=== PATIENT | female | born 1975 | race Caucasian/White ===

== ENCOUNTER → 2016-12-23 | Outpatient (CLI) | payer OTHER ==
[~2016-12-23] MED LIST: '''ZYRTEC PO; ALPRAZOLAM0.25 M2 PO; BACTRIM DS 8001 TA1 PO; BENADRYL ALLERG25 M5 PO; CELEXA10 MG PO; CLARITIN10 MG PO; FLAGYL250 MG PO; FLAGYL500 MG PO; HYDROCODON-ACE118 ML PO; HYDROXYZINE PAM25 M1 PO; LEVAQUIN500 M2 PO; LEVAQUIN750 M1 PO; LIDEX 0.05% CRE15 GM T; MIDRIN (DURADR1 CAP PO; MUCINEX ER600 MG PO; Motrin,Rufen800 MG PO; NORCO 325 MG-101 TAB PO; PAROXETINE HCL20 MG PO; PHENERGAN25 M3 PO; PHENERGAN25 MG R; PREDNICOT20 MG PO; PREDNISONE10 MG PO; PRENATAL1 TA1 PO; PRILOSEC10 MG PO; PYRIDIUM200 M1 PO; VISTARIL25 M2 PO; VISTARIL25 MG PO; WELLBUTRIN XL150 MG PO; ZOFRAN4 MG PO; ZOLPIDEM TARTRAT5 MG PO; [UNRECOGNIZED DRUG - OTHER]
== END | disposition home or self-care (01) ==
LOC: US 04:14
DX: M79.661 Pain in right lower leg (principal); M79.662 Pain in left lower leg

== ENCOUNTER 2017-05-03 19:27 | Emergency (ER) | payer OTHER ==
[~2017-05-03] VITALS: Ht 162.5 cm; Wt 69.9 kg
[2017-05-03 19:35] VITALS: BP 129/80
[2017-05-03] MEDS ORDERED: PERCOCET 5-3251 EACH PO (19:35)
[2017-05-03] MEDS ORDERED: Motrin,Rufen800 MG PO (19:35)
[2017-05-03 20:10] LABS: BILIRUBIN NEGATIVE (NEGATIVE); BLOOD NEGATIVE (NEGATIVE); CLARITY SL CLOUDY (CLEAR); COLOR YELLOW (YELLOW); GLUCOSE NEGATIVE (NEGATIVE); KETONE NEGATIVE (NEGATIVE); LEUKO ESTERASE NEGATIVE (NEGATIVE); NITRITE NEGATIVE (NEGATIVE); SPECIFIC GRAVITY 1.015 (1.005-1.030); UROBILINOGEN 0.2 E.U./dl (0.2-1.0)
[2017-05-03 20:18] LABS: BACTERIA 1+; EPITHELIAL CELLS 16-20
[2017-05-03 20:42] LABS: BASO % 0.1 % (0.0-1.0); EOS # 0.2 10*3/uL (0.0-0.4); EOS % 2.7 % (1.0-4.0); HEMATOCRIT 39.5 % (37.0-47.0); LYMPH % 26.3 % (27.0-41.0); MEAN CORPUSCULAR HGB 29.6 pg (27.0-31.0); MEAN CORPUSCULAR HGB CONC 32.9 g/dl (33.0-37.0); MEAN PLATELET VOLUME 10.7 fl (9.6-12.3); MONO # 0.6 10*3/uL (0.1-1.0); MONO % 7.7 % (3.0-9.0); NEUT # 4.7 10*3/uL (2.3-7.9); NEUT % 62.8 % (47.0-73.0); PLATELET COUNT AUTOMATED 359 10*3/uL (130-400); RED BLOOD COUNT 4.39 10*6/uL (4.10-5.10); RED CELL DISTRI WIDTH 13.2 % (0-14.5); WHITE BLOOD COUNT 7.5 10*3/uL (4.8-10.8)
[2017-05-03 20:59] LABS: ALBUMIN 3.5 gm/dl (3.1-4.5); ALKALINE PHOSPHATASE 85 U/L (45-117); BUN 15 mg/dl (7-24); CHLORIDE 106 mmol/L (98-107); CREATININE 1.09 mg/dL (0.55-1.02); POTASSIUM 4.7 mmol/L (3.5-5.1); SGOT/AST 21 IU/L (3-35); SGPT/ALT 21 U/L (12-78); SODIUM 141 mmol/L (136-145); TOTAL PROTEIN 7.1 gm/dL (6.4-8.2)
[2017-05-03] MEDS ORDERED: AMINOPHYLLIN200 MG PO (21:15)
== END 2017-05-03 20:11 | disposition home or self-care (01) ==
LOC: ED 19:27
PROVIDERS: Physician Assistant
DX: N39.0 Urinary tract infection, site not specified (principal); Z98.890 Other specified postprocedural states; Z90.89 Acquired absence of other organs; Z79.899 Other long term (current) drug therapy

== ENCOUNTER → 2018-03-23 | Outpatient (CLI) | payer OTHER ==
[~2018-03-23] MED LIST changes: +AMINOPHYLLIN200 MG PO; +PERCOCET 5-3251 EACH PO
== END | disposition home or self-care (01) ==
LOC: MAMMO 03-16 08:20
DX: R92.8 Other abnormal and inconclusive findings on diagnostic imaging of breast (principal); Z98.82 Breast implant status

== ENCOUNTER 2018-06-19 | Emergency (ER) | payer OTHER ==
[2018-06-19 23:15] LABS: ALBUMIN 3.6 gm/dl (3.1-4.5); ALKALINE PHOSPHATASE 84 U/L (45-117); BUN 16 mg/dl (7-24); CHLORIDE 105 mmol/L (98-107); CREATININE 0.85 mg/dL (0.55-1.02); LIPASE 91 U/L (73-393); POTASSIUM 3.9 mmol/L (3.5-5.1); SGOT/AST 14 IU/L (3-35); SGPT/ALT 19 U/L (12-78); SODIUM 137 mmol/L (136-145); TOTAL PROTEIN 7.3 gm/dL (6.4-8.2)
[2018-06-19 23:16] LABS: HEMATOCRIT 43.5 % (37.0-47.0); HEMOGLOBIN 14.3 g/dl (12.0-16.0); MEAN CELL VOLUME 90.6 fl (81.0-99.0); MEAN CORPUSCULAR HGB 29.8 pg (27.0-31.0); MEAN CORPUSCULAR HGB CONC 32.9 g/dl (33.0-37.0); MEAN PLATELET VOLUME 11.3 fl (9.6-12.3); PLATELET COUNT AUTOMATED 280 10*3/uL (130-400)
[2018-06-19 23:38] LABS: TOTAL CELLS COUNTED 100 #CELLS
[2018-06-19 23:39] LABS: PLATELET SUFFICIENCY NORMAL (NORMAL)
[2018-06-20 01:25] LABS: BILIRUBIN NEGATIVE (NEGATIVE); BLOOD NEGATIVE (NEGATIVE); CLARITY CLEAR (CLEAR); COLOR YELLOW (YELLOW); GLUCOSE NEGATIVE (NEGATIVE); KETONE 3+ (NEGATIVE); LEUKO ESTERASE NEGATIVE (NEGATIVE); NITRITE NEGATIVE (NEGATIVE); SPECIFIC GRAVITY >= 1.030 (1.005-1.030); UROBILINOGEN 0.2 E.U./dl (0.2-1.0)
[2018-06-20 01:47] LABS: BACTERIA TRACE; EPITHELIAL CELLS 15-20
[2018-06-20] MEDS ORDERED: ZOFRAN4 MG PO ×2 (01:53→02:11)
== END 2018-06-20 02:42 | disposition home or self-care (01) ==
PROVIDERS: Nurse Practitioner Family
DX: K52.9 Noninfective gastroenteritis and colitis, unspecified (principal); G43.909 Migraine, unspecified, not intractable, without status migrainosus; Z79.899 Other long term (current) drug therapy

== ENCOUNTER → 2019-04-25 | Outpatient (CLI) | payer OTHER ==
--- NOTE | ~2019-04-25 | EKG ---
[place], [place] ELECTROCARDIOGRAM REPORT NAME: ELISA DONATO UNIT #: [id number] ROOM: DOCTOR: EPIPHANY DRAFT REPORT BIRTHDATE: [birth year] [facility] Test Date: 2019-04-25 Test Time: 17:05:57 Pat Name: ELISA DONATO Department: Room: Gender: F Senior Process Analyst: : 1975 Requested By: KIMBERLY MARBY Order Number: [id number] Reading MD: Chandni Montes Measurements Intervals [place] Rate: 82 P: 77 IA: 151 QRS: 78 QRSD: 66 T: 75 QT: 360 QTc: 421 Interpretive Statements Sinus rhythm No previous ECG available for comparison Electronically Signed On 04-26-2019 9:40:22 PST by Chandni Montes CM:EKGRPT:ELECTROCARDIOGRAM REPORT 1705 [id number] KIMBERLY MABRY EPIPHANY DRAFT REPORT KIMBERLY MABRY
== END | disposition home or self-care (01) ==
LOC: CARD 16:31
DX: F41.9 Anxiety disorder, unspecified (principal); R25.1 Tremor, unspecified; L65.9 Nonscarring hair loss, unspecified; F32.9 Major depressive disorder, single episode, unspecified; R42 Dizziness and giddiness

== ENCOUNTER → 2019-05-29 | Outpatient (CLI) | payer OTHER | END | disposition home or self-care (01) | LOC: MRI 10:39 | DX: G43.909 Migraine, unspecified, not intractable, without status migrainosus (principal); H57.12 Ocular pain, left eye ==

== ENCOUNTER 2019-08-20 14:20 | Emergency (ER) | payer OTHER ==
[~2019-08-20] VITALS: Ht 162.5 cm; Wt 68.0 kg
[2019-08-20 14:27] VITALS: BP 128/77
[2019-08-20] MEDS ORDERED: ZOFRAN4 MG PO (16:23)
== END 2019-08-20 16:26 | disposition home or self-care (01) ==
LOC: ED 14:20
DX: J11.1 Influenza due to unidentified influenza virus with other respiratory manifestations (principal); F41.9 Anxiety disorder, unspecified; F32.9 Major depressive disorder, single episode, unspecified; Z79.2 Long term (current) use of antibiotics; Z79.899 Other long term (current) drug therapy

== ENCOUNTER 2019-10-23 07:16 | Emergency (ER) | payer OTHER ==
[~2019-10-23] VITALS: Ht 162.5 cm; Wt 70.8 kg
[2019-10-23 07:23] VITALS: BP 107/60
[2019-10-23] MEDS ORDERED: LIDEX 0.05% CRE15 GM T (07:38)
[2019-10-23] MEDS ORDERED: ATARAX,VISTARIL50 MG PO (07:38)
[2019-10-23] MEDS ORDERED: PREDNISONE20 M1 PO (07:38)
== END 2019-10-23 07:40 | disposition home or self-care (01) ==
LOC: ED 07:16
DX: L25.9 Unspecified contact dermatitis, unspecified cause (principal); Z79.899 Other long term (current) drug therapy; Z98.890 Other specified postprocedural states; Z90.89 Acquired absence of other organs

== ENCOUNTER 2019-11-04 23:11 | Emergency (ER) | payer OTHER ==
[~2019-11-04] VITALS: Ht 165.1 cm; Wt 69.9 kg
[~2019-11-04 23:11] MED LIST changes: +ATARAX,VISTARIL50 MG PO; +PREDNISONE20 M1 PO
[2019-11-04 23:40] LABS: BASO % 0.1 % (0.0-1.0); EOS % 0.1 % (1.0-4.0); HEMATOCRIT 39.2 % (37.0-47.0); LYMPH # 3.2 10*3/uL (1.3-4.4); LYMPH % 13.6 % (27.0-41.0); MEAN CELL VOLUME 89.7 fl (81.0-99.0); MEAN CORPUSCULAR HGB 29.5 pg (27.0-31.0); MEAN CORPUSCULAR HGB CONC 32.9 g/dl (33.0-37.0); MEAN PLATELET VOLUME 10.6 fl (9.6-12.3); MONO # 1.2 10*3/uL (0.1-1.0); MONO % 5.1 % (3.0-9.0); NEUT # 18.6 10*3/uL (2.3-7.9); NEUT % 80.3 % (47.0-73.0); PLATELET COUNT AUTOMATED 334 10*3/uL (130-400); RED BLOOD COUNT 4.37 10*6/uL (4.10-5.10); RED CELL DISTRI WIDTH 14.2 % (0-14.5); WHITE BLOOD COUNT 23.2 10*3/uL (4.8-10.8)
[2019-11-04 23:51] LABS: ACT PARTIAL THROMBO TIME 20.2 SECONDS (20.0-32.1); INTERNATIONAL NORM RATIO 0.9 (2.0-3.5)
[2019-11-04 23:58] LABS: ALBUMIN 3.4 gm/dl (3.1-4.5); ALKALINE PHOSPHATASE 65 U/L (45-117); BUN 14 mg/dl (7-24); CHLORIDE 105 mmol/L (98-107); CREATININE 1.04 mg/dL (0.55-1.02); POTASSIUM 3.9 mmol/L (3.5-5.1); SGOT/AST 13 IU/L (3-35); SGPT/ALT 15 U/L (12-78); SODIUM 139 mmol/L (136-145); TOTAL PROTEIN 6.7 gm/dL (6.4-8.2)
[2019-11-05 00:05] LABS: TROPONIN I < 0.015 ng/ml (<0.045)
[2019-11-05 02:03] LABS: BILIRUBIN NEGATIVE (NEGATIVE); BLOOD NEGATIVE (NEGATIVE); CLARITY CLEAR (CLEAR); COLOR YELLOW (YELLOW); GLUCOSE NEGATIVE (NEGATIVE); KETONE NEGATIVE (NEGATIVE); LEUKO ESTERASE NEGATIVE (NEGATIVE); NITRITE NEGATIVE (NEGATIVE); PH 6.5 (5.0-9.0); SPECIFIC GRAVITY 1.015 (1.005-1.030); UROBILINOGEN 0.2 E.U./dl (0.2-1.0)
[2019-11-05 02:09] LABS: RBC 0-2 rbc/hpf (0-2); WBC 0-2 wbc/hpf (0-5)
[2019-11-05 03:41] VITALS: BP 112/78
[2019-11-05] MEDS ORDERED: PROTONIX40 MG PO (04:18)
== END 2019-11-05 04:39 | disposition home or self-care (01) ==
LOC: ED 23:11
PROVIDERS: Emergency Medicine Emergency Medical Services
DX: R07.89 Other chest pain (principal); K21.9 Gastro-esophageal reflux disease without esophagitis; F41.9 Anxiety disorder, unspecified; E78.5 Hyperlipidemia, unspecified; Z79.899 Other long term (current) drug therapy

== ENCOUNTER → 2019-11-16 | Outpatient (CLI) | payer OTHER ==
[~2019-11-16] MED LIST changes: +PROTONIX40 MG PO
== END | disposition home or self-care (01) ==
LOC: US 13:56
DX: R10.9 Unspecified abdominal pain (principal)

== ENCOUNTER → 2020-01-19 | Outpatient (CLI) | payer OTHER | END | disposition home or self-care (01) | LOC: US 12-15 13:00 | DX: R22.1 Localized swelling, mass and lump, neck (principal) ==

== ENCOUNTER 2020-03-26 23:16 | Emergency (ER) | payer OTHER ==
[~2020-03-26] VITALS: Ht 165.1 cm; Wt 72.6 kg
[2020-03-27] MEDS ORDERED: TESSALON PERLE100 M1 PO (00:10)
== END 2020-03-27 00:54 | disposition home or self-care (01) ==
LOC: ED 23:16
DX: J06.9 Acute upper respiratory infection, unspecified (principal); Z79.899 Other long term (current) drug therapy

== ENCOUNTER → 2020-07-24 | Outpatient (CLI) | payer OTHER ==
[~2020-07-24] MED LIST changes: +TESSALON PERLE100 M1 PO
== END | disposition home or self-care (01) ==
LOC: MAMMO 10:56
PROVIDERS: ATTEND Internal Medicine
DX: M50.31 Other cervical disc degeneration, high cervical region (principal); M48.02 Spinal stenosis, cervical region; M85.88 Other specified disorders of bone density and structure, other site; R92.1 Mammographic calcification found on diagnostic imaging of breast; R92.8 Other abnormal and inconclusive findings on diagnostic imaging of breast

== ENCOUNTER 2020-10-12 23:52 | Emergency (ER) | payer OTHER ==
[~2020-10-12] VITALS: Ht 162.5 cm; Wt 75.3 kg
[2020-10-13 00:07] VITALS: BP 140/96
[2020-10-13 01:17] LABS: BASO % 0.3 % (0.0-1.0); EOS # 0.1 10*3/uL (0.0-0.4); EOS % 0.5 % (1.0-4.0); HEMATOCRIT 38.2 % (37.0-47.0); LYMPH # 1.8 10*3/uL (1.3-4.4); LYMPH % 15.6 % (27.0-41.0); MEAN CELL VOLUME 88.2 fl (81.0-99.0); MEAN CORPUSCULAR HGB 28.4 pg (27.0-31.0); MEAN CORPUSCULAR HGB CONC 32.2 g/dl (33.0-37.0); MEAN PLATELET VOLUME 11.4 fl (9.6-12.3); MONO # 0.9 10*3/uL (0.1-1.0); MONO % 7.5 % (3.0-9.0); NEUT # 8.8 10*3/uL (2.3-7.9); NEUT % 75.8 % (47.0-73.0); PLATELET COUNT AUTOMATED 327 10*3/uL (130-400); RED BLOOD COUNT 4.33 10*6/uL (4.10-5.10); RED CELL DISTRI WIDTH 13.5 % (0-14.5); WHITE BLOOD COUNT 11.6 10*3/uL (4.8-10.8)
[2020-10-13 01:40] LABS: ALBUMIN 3.3 gm/dl (3.1-4.5); ALKALINE PHOSPHATASE 116 U/L (45-117); BUN 16 mg/dl (7-24); CHLORIDE 108 mmol/L (98-107); CREATININE 0.97 mg/dL (0.55-1.02); POTASSIUM 3.3 mmol/L (3.5-5.1); SGOT/AST 12 IU/L (3-35); SGPT/ALT 14 U/L (12-78); SODIUM 141 mmol/L (136-145); TOTAL PROTEIN 6.8 gm/dL (6.4-8.2)
== END 2020-10-13 02:11 | disposition home or self-care (01) ==
LOC: ED 23:52
PROVIDERS: Emergency Medicine
DX: R07.89 Other chest pain (principal); K21.9 Gastro-esophageal reflux disease without esophagitis; F41.9 Anxiety disorder, unspecified; E78.5 Hyperlipidemia, unspecified; Z79.899 Other long term (current) drug therapy; Z98.890 Other specified postprocedural states

== ENCOUNTER 2021-01-04 21:30 | Emergency (ER) | payer OTHER ==
[~2021-01-04] VITALS: Ht 162.5 cm; Wt 77.1 kg
[2021-01-04 21:44] VITALS: BP 110/73
[2021-01-04 22:40] LABS: BILIRUBIN Negative (Negative); BLOOD Negative (Negative); CLARITY Cloudy (Clear); COLOR Yellow (Yellow); GLUCOSE Negative (Negative); KETONE Trace (Negative); LEUKO ESTERASE Negative (Negative); NITRITE Negative (Negative); PH 5.5 (4.5-8.0); SPECIFIC GRAVITY >= 1.030 (1.001-1.030)
[2021-01-04 23:09] LABS: BACTERIA TRACE; RBC 0-2 rbc/hpf (0-2); WBC 0-2 wbc/hpf (0-5)
[2021-01-04] MEDS ORDERED: IBU800 MG PO (23:12)
== END 2021-01-04 23:29 | disposition home or self-care (01) ==
LOC: ED 21:30
PROVIDERS: Nurse Practitioner Family
DX: M65.841 Other synovitis and tenosynovitis, right hand (principal); M65.842 Other synovitis and tenosynovitis, left hand; M94.0 Chondrocostal junction syndrome [Tietze]; R30.9 Painful micturition, unspecified; M54.5 Low back pain; Z87.442 Personal history of urinary calculi; Z79.899 Other long term (current) drug therapy; Z98.890 Other specified postprocedural states; Z90.89 Acquired absence of other organs

== ENCOUNTER 2021-01-22 17:56 | Emergency (ER) | payer OTHER ==
[~2021-01-22] VITALS: Ht 162.5 cm; Wt 77.1 kg
[~2021-01-22 17:56] MED LIST changes: +IBU800 MG PO
[2021-01-22 18:11] VITALS: BP 129/81
[2021-01-22 19:48] LABS: BILIRUBIN Negative (Negative); BLOOD Negative (Negative); CLARITY Cloudy (Clear); COLOR Yellow (Yellow); GLUCOSE Negative (Negative); KETONE Trace (Negative); LEUKO ESTERASE Negative (Negative); NITRITE Negative (Negative); PH 6.5 (4.5-8.0); SPECIFIC GRAVITY 1.025 (1.001-1.030)
[2021-01-22 19:54] LABS: BASO % 0.3 % (0.0-1.0); EOS # 0.1 10*3/uL (0.0-0.4); EOS % 1.3 % (1.0-4.0); HEMATOCRIT 41.2 % (37.0-47.0); LYMPH # 2.2 10*3/uL (1.3-4.4); LYMPH % 23.6 % (27.0-41.0); MEAN CELL VOLUME 89.2 fl (81.0-99.0); MEAN CORPUSCULAR HGB 28.1 pg (27.0-31.0); MEAN CORPUSCULAR HGB CONC 31.6 g/dl (33.0-37.0); MEAN PLATELET VOLUME 11.1 fl (9.6-12.3); MONO # 0.7 10*3/uL (0.1-1.0); MONO % 7.6 % (3.0-9.0); NEUT # 6.1 10*3/uL (2.3-7.9); PLATELET COUNT AUTOMATED 336 10*3/uL (130-400); RED BLOOD COUNT 4.62 10*6/uL (4.10-5.10); RED CELL DISTRI WIDTH 13.9 % (0-14.5); WHITE BLOOD COUNT 9.2 10*3/uL (4.8-10.8)
[2021-01-22 19:58] LABS: RBC 0-2 rbc/hpf (0-2); WBC 0-2 wbc/hpf (0-5)
[2021-01-22 19:59] LABS: BACTERIA 1+
[2021-01-22 20:11] LABS: ALBUMIN 3.6 gm/dl (3.1-4.5); ALKALINE PHOSPHATASE 102 U/L (45-117); BUN 11 mg/dl (7-24); CHLORIDE 105 mmol/L (98-107); CREATININE 0.83 mg/dL (0.55-1.02); LIPASE 107 U/L (73-393); POTASSIUM 4.2 mmol/L (3.5-5.1); SGOT/AST 13 IU/L (3-35); SGPT/ALT 15 U/L (12-78); SODIUM 139 mmol/L (136-145); TOTAL PROTEIN 7.3 gm/dL (6.4-8.2)
[2021-01-22] MEDS ORDERED: DICYCLOMINE HCL20 MG PO (23:12)
== END 2021-01-22 23:48 | disposition home or self-care (01) ==
LOC: ED 17:56
PROVIDERS: Emergency Medicine
DX: R10.30 Lower abdominal pain, unspecified (principal); Z98.890 Other specified postprocedural states; Z90.89 Acquired absence of other organs; Z79.899 Other long term (current) drug therapy

== ENCOUNTER 2021-06-14 17:03 | Emergency (ER) | payer OTHER ==
[~2021-06-14] VITALS: Ht 167.6 cm; Wt 72.6 kg
[~2021-06-14 17:03] MED LIST changes: +DICYCLOMINE HCL20 MG PO
[2021-06-14 17:21] VITALS: BP 122/63
[2021-06-14] MEDS ORDERED: ZOFRAN4 MG PO (20:02)
== END 2021-06-14 20:23 | disposition home or self-care (01) ==
LOC: ED 17:03
DX: U07.1 COVID-19 (principal); Z20.822 Contact with and (suspected) exposure to COVID-19

== ENCOUNTER 2021-07-13 17:38 | Emergency (ER) | payer OTHER ==
[~2021-07-13] VITALS: Ht 162.5 cm; Wt 74.4 kg
[2021-07-13 17:51] VITALS: BP 139/79
[2021-07-13] MEDS ORDERED: TYLENOL325 M1 PO (18:57)
[2021-07-13] MEDS ORDERED: MUCINEX DM 30/61 TAB PO (18:57)
[2021-07-13] MEDS ORDERED: NAPROXEN250 MG PO (18:57)
[2021-07-13] MEDS ORDERED: CEPACOL INSTAM1 EACH MM (18:57)
== END 2021-07-13 21:15 | disposition home or self-care (01) ==
LOC: ED 17:38
DX: J06.9 Acute upper respiratory infection, unspecified (principal); Z20.822 Contact with and (suspected) exposure to COVID-19; K21.9 Gastro-esophageal reflux disease without esophagitis; Z79.899 Other long term (current) drug therapy; Z90.89 Acquired absence of other organs; Z98.890 Other specified postprocedural states

== ENCOUNTER → 2021-10-22 | Outpatient (CLI) | payer OTHER ==
[~2021-10-22] MED LIST changes: +CEPACOL INSTAM1 EACH MM; +MUCINEX DM 30/61 TAB PO; +NAPROXEN250 MG PO; +TYLENOL325 M1 PO
== END | disposition home or self-care (01) ==
LOC: MAMMO 01:39
PROVIDERS: ATTEND Nurse Practitioner Women's Health
DX: Z12.31 Encounter for screening mammogram for malignant neoplasm of breast (principal)

== ENCOUNTER 2022-01-12 12:24 | Emergency (ER) | payer OTHER ==
[~2022-01-12] VITALS: Ht 162.5 cm; Wt 77.1 kg
[2022-01-12 13:10] VITALS: BP 109/70
[2022-01-12 13:58] LABS: BILIRUBIN Negative (Negative); BLOOD Negative (Negative); CLARITY Cloudy (Clear); COLOR Dark Yellow (Yellow); GLUCOSE Negative (Negative); KETONE Trace (Negative); LEUKO ESTERASE Negative (Negative); NITRITE Negative (Negative); PH 6.5 (4.5-8.0); SPECIFIC GRAVITY >= 1.030 (1.001-1.030)
[2022-01-12 14:27] LABS: BACTERIA 3+; EPITHELIAL CELLS 21-30; WBC 0-2 wbc/hpf (0-5)
[2022-01-12] MEDS ORDERED: CIPRO500 MG PO (14:40)
[2022-01-12] MEDS ORDERED: PREDNISONE50 MG PO (14:40)
== END 2022-01-12 15:00 | disposition home or self-care (01) ==
LOC: ED 12:24
PROVIDERS: Emergency Medicine
DX: L25.9 Unspecified contact dermatitis, unspecified cause (principal); R30.0 Dysuria; Z79.899 Other long term (current) drug therapy; Z90.89 Acquired absence of other organs; Z98.890 Other specified postprocedural states

== ENCOUNTER 2022-02-24 04:20 | Emergency (ER) | payer OTHER ==
[~2022-02-24] VITALS: Ht 165.1 cm; Wt 72.6 kg
[~2022-02-24 04:20] MED LIST changes: +CIPRO500 MG PO; +PREDNISONE50 MG PO
[2022-02-24] MEDS ORDERED: ESCITALOPRAM OX10 MG PO (04:40)
[2022-02-24] MEDS ORDERED: TRAZODONE50 MG PO (04:40)
[2022-02-24] MEDS ORDERED: CYCLOBENZAPRINE10 MG PO (04:40)
[2022-02-24] MEDS ORDERED: ROPINIROLE HY0.25 MG PO (04:40)
[2022-02-24] MEDS ORDERED: FLUOXETINE HCL40 MG PO (04:41)
[2022-02-24] MEDS ORDERED: HYDROXYZINE PAM50 MG PO (04:41)
[2022-02-24 05:06] LABS: ACT PARTIAL THROMBO TIME 24.1 SECONDS (20.0-32.1); INTERNATIONAL NORM RATIO 0.9 (2.0-3.5)
[2022-02-24 05:13] LABS: ALKALINE PHOSPHATASE 97 U/L (45-117); BUN 11 mg/dl (7-24); CHLORIDE 111 mmol/L (98-107); CREATININE 0.85 mg/dL (0.55-1.02); POTASSIUM 3.5 mmol/L (3.5-5.1); SGOT/AST 11 IU/L (3-35); SGPT/ALT 14 U/L (12-78); SODIUM 140 mmol/L (136-145); TOTAL PROTEIN 6.5 gm/dL (6.4-8.2)
[2022-02-24 06:09] LABS: BASO % 0.3 % (0.0-1.0); EOS # 0.2 10*3/uL (0.0-0.4); EOS % 1.7 % (1.0-4.0); LYMPH # 2.9 10*3/uL (1.3-4.4); LYMPH % 27.5 % (27.0-41.0); MEAN CELL VOLUME 90.3 fl (81.0-99.0); MEAN CORPUSCULAR HGB 29.5 pg (27.0-31.0); MEAN CORPUSCULAR HGB CONC 32.6 g/dl (33.0-37.0); MEAN PLATELET VOLUME 12.3 fl (9.6-12.3); MONO # 0.8 10*3/uL (0.1-1.0); MONO % 7.2 % (3.0-9.0); NEUT # 6.5 10*3/uL (2.3-7.9); NEUT % 61.9 % (47.0-73.0); PLATELET COUNT AUTOMATED 318 10*3/uL (130-400); RED BLOOD COUNT 4.21 10*6/uL (4.10-5.10); RED CELL DISTRI WIDTH 14.2 % (0-14.5); WHITE BLOOD COUNT 10.5 10*3/uL (4.8-10.8)
[2022-02-24 06:24] VITALS: BP 142/90
== END 2022-02-24 07:22 | disposition home or self-care (01) ==
LOC: ED 04:20
PROVIDERS: Emergency Medicine
DX: R07.89 Other chest pain (principal); M54.2 Cervicalgia; M25.512 Pain in left shoulder; Z79.899 Other long term (current) drug therapy; Z98.890 Other specified postprocedural states; Z90.49 Acquired absence of other specified parts of digestive tract

== ENCOUNTER 2022-06-09 20:07 | Emergency (ER) | payer OTHER ==
[~2022-06-09] VITALS: Ht 165.1 cm; Wt 74.8 kg
[~2022-06-09 20:07] MED LIST changes: +CYCLOBENZAPRINE10 MG PO; +ESCITALOPRAM OX10 MG PO; +FLUOXETINE HCL40 MG PO; +HYDROXYZINE PAM50 MG PO; +ROPINIROLE HY0.25 MG PO; +TRAZODONE50 MG PO
[2022-06-09 20:34] VITALS: BP 123/82
[2022-06-09] MEDS ORDERED: PREDNISONE20 M1 PO (22:35)
[2022-06-09] MEDS ORDERED: ZITHROMAX250 MG PO (22:35)
== END 2022-06-09 23:16 | disposition home or self-care (01) ==
LOC: ED 20:07
DX: U07.1 COVID-19 (principal); J06.9 Acute upper respiratory infection, unspecified; Z98.890 Other specified postprocedural states; Z90.89 Acquired absence of other organs; F10.20 Alcohol dependence, uncomplicated

== ENCOUNTER 2022-07-08 21:26 | Emergency (ER) | payer OTHER ==
[~2022-07-08] VITALS: Ht 162.5 cm; Wt 74.8 kg
[~2022-07-08 21:26] MED LIST changes: +ZITHROMAX250 MG PO
[2022-07-08 21:46] VITALS: BP 123/72
[2022-07-08 22:28] LABS: BILIRUBIN Negative (Negative); BLOOD Negative (Negative); CLARITY Clear (Clear); COLOR Yellow (Yellow); GLUCOSE Negative (Negative); KETONE Negative (Negative); LEUKO ESTERASE Negative (Negative); NITRITE Negative (Negative); PH 6.5 (4.5-8.0); SPECIFIC GRAVITY 1.025 (1.001-1.030)
[2022-07-08 22:34] LABS: WBC 0-2 wbc/hpf (0-5)
[2022-07-09] MEDS ORDERED: CEPHALEXIN500 M1 PO (00:17)
== END 2022-07-09 00:32 | disposition home or self-care (01) ==
LOC: ED 21:26
PROVIDERS: Emergency Medicine
DX: J03.90 Acute tonsillitis, unspecified (principal); R30.0 Dysuria; N39.0 Urinary tract infection, site not specified; F41.9 Anxiety disorder, unspecified; K21.9 Gastro-esophageal reflux disease without esophagitis; I10 Essential (primary) hypertension; Z90.89 Acquired absence of other organs; Z98.890 Other specified postprocedural states; F10.20 Alcohol dependence, uncomplicated; Z20.822 Contact with and (suspected) exposure to COVID-19

== ENCOUNTER 2022-08-12 20:25 | Emergency (ER) | payer OTHER ==
[~2022-08-12] VITALS: Wt 59.0 kg
[~2022-08-12 20:25] MED LIST changes: +CEPHALEXIN500 M1 PO
[2022-08-12 20:32] VITALS: BP 119/75
[2022-08-12] MEDS ORDERED: PREDNISONE20 M1 PO (21:19)
[2022-08-12] MEDS ORDERED: METHOCARBAMOL500 M1 PO (21:19)
== END 2022-08-12 22:25 | disposition home or self-care (01) ==
LOC: ED 20:25
DX: S23.3XXA Sprain of ligaments of thoracic spine, initial encounter (principal); Z79.899 Other long term (current) drug therapy; Z90.89 Acquired absence of other organs; Z98.890 Other specified postprocedural states; X58.XXXA Exposure to other specified factors, initial encounter; Y93.89 Activity, other specified; Y92.89 Other specified places as the place of occurrence of the external cause; Y99.8 Other external cause status

== ENCOUNTER 2022-09-16 20:24 | Emergency (ER) | payer OTHER ==
[~2022-09-16] VITALS: Ht 162.5 cm; Wt 79.4 kg
[~2022-09-16 20:24] MED LIST changes: +METHOCARBAMOL500 M1 PO
[2022-09-16 21:16] VITALS: BP 171/79
== END 2022-09-16 23:02 | disposition home or self-care (01) ==
LOC: ED 20:24
DX: S06.0X0A Concussion without loss of consciousness, initial encounter (principal); Z79.899 Other long term (current) drug therapy; Z98.890 Other specified postprocedural states; Z90.89 Acquired absence of other organs; V89.2XXA Person injured in unspecified motor-vehicle accident, traffic, initial encounter; Y93.89 Activity, other specified; Y92.89 Other specified places as the place of occurrence of the external cause; Y99.8 Other external cause status

== ENCOUNTER 2022-09-17 21:20 | Emergency (ER) | payer OTHER ==
[~2022-09-17] VITALS: Ht 162.5 cm; Wt 79.4 kg
[2022-09-17 21:41] VITALS: BP 120/67
== END 2022-09-18 00:23 | disposition home or self-care (01) ==
LOC: ED 21:20
DX: R07.81 Pleurodynia (principal); V89.2XXA Person injured in unspecified motor-vehicle accident, traffic, initial encounter; Y93.89 Activity, other specified; Y92.89 Other specified places as the place of occurrence of the external cause; Y99.8 Other external cause status

== ENCOUNTER 2022-11-20 21:54 | Emergency (ER) | payer OTHER ==
[~2022-11-20] VITALS: Ht 162.5 cm; Wt 77.1 kg
[2022-11-20 21:54] VITALS: BP 116/88
[2022-11-20 22:57] LABS: BILIRUBIN Negative (Negative); BLOOD 2+ (Negative); CLARITY Cloudy (Clear); COLOR Dark Yellow (Yellow); GLUCOSE Negative (Negative); KETONE Trace (Negative); LEUKO ESTERASE 1+ (Negative); NITRITE Negative (Negative); PH 5.5 (4.5-8.0); SPECIFIC GRAVITY >= 1.030 (1.001-1.030)
[2022-11-20] MEDS ORDERED: CEPHALEXIN500 M1 PO (23:04)
[2022-11-20 23:08] LABS: BACTERIA 2+; MUCOUS 1+; RBC 16-20 rbc/hpf (0-2); WBC 41-50 wbc/hpf (0-5)
== END 2022-11-20 23:35 | disposition home or self-care (01) ==
LOC: ED 21:54
PROVIDERS: Student in an Organized Health Care Education/Training Program
DX: M25.562 Pain in left knee (principal); R30.0 Dysuria; Z79.899 Other long term (current) drug therapy; Z90.89 Acquired absence of other organs; Z98.890 Other specified postprocedural states

== ENCOUNTER 2022-11-29 11:44 | Emergency (ER) | payer OTHER ==
[~2022-11-29] VITALS: Ht 162.5 cm; Wt 79.8 kg
[2022-11-29 12:14] VITALS: BP 124/78
[2022-11-29] MEDS ORDERED: PREDNISONE20 M1 PO (12:26)
[2022-11-29] MEDS ORDERED: TRIAMCINOLONE430 GM TD (12:26)
== END 2022-11-29 12:31 | disposition home or self-care (01) ==
LOC: ED 11:44
DX: L23.7 Allergic contact dermatitis due to plants, except food (principal); F32.A Depression, unspecified; F41.9 Anxiety disorder, unspecified; Z90.89 Acquired absence of other organs; Z98.890 Other specified postprocedural states

== ENCOUNTER 2023-02-18 17:59 | Emergency (ER) | payer OTHER ==
[~2023-02-18 17:59] MED LIST changes: +TRIAMCINOLONE430 GM TD
== END 2023-02-18 19:30 | disposition left against medical advice (07) ==
LOC: ED 17:59
DX: M79.659 Pain in unspecified thigh (principal); Z53.21 Procedure and treatment not carried out due to patient leaving prior to being seen by health care provider

== ENCOUNTER 2023-04-21 13:53 | Emergency (ER) | payer OTHER ==
[~2023-04-21] VITALS: Wt 78.5 kg
[2023-04-21 14:03] VITALS: BP 126/80
[2023-04-21] MEDS ORDERED: ZITHROMAX250 MG PO (14:41)
[2023-04-21] MEDS ORDERED: PREDNISONE20 M1 PO (14:41)
== END 2023-04-21 15:00 | disposition home or self-care (01) ==
LOC: ED 13:53
DX: J32.9 Chronic sinusitis, unspecified (principal); F41.9 Anxiety disorder, unspecified; F32.A Depression, unspecified; Z86.16 Personal history of COVID-19; K21.9 Gastro-esophageal reflux disease without esophagitis; E83.41 Hypermagnesemia; Z90.89 Acquired absence of other organs; Z98.890 Other specified postprocedural states

== ENCOUNTER → 2023-05-26 | Outpatient (CLI) | payer OTHER | END | disposition home or self-care (01) | LOC: MAMMO 08:00 | PROVIDERS: ATTEND Internal Medicine | DX: Z12.31 Encounter for screening mammogram for malignant neoplasm of breast (principal) ==

== ENCOUNTER 2023-06-07 00:44 | Emergency (ER) | payer OTHER ==
[~2023-06-07] VITALS: Ht 162.5 cm; Wt 78.5 kg
[2023-06-07 01:00] VITALS: BP 123/79
== END 2023-06-07 03:36 | disposition home or self-care (01) ==
LOC: ED 00:44
DX: B34.9 Viral infection, unspecified (principal); R12 Heartburn; F32.A Depression, unspecified; F41.9 Anxiety disorder, unspecified; Z98.890 Other specified postprocedural states; Z90.89 Acquired absence of other organs; Z20.822 Contact with and (suspected) exposure to COVID-19

== ENCOUNTER 2023-06-22 21:48 | Emergency (ER) | payer OTHER ==
[~2023-06-22] VITALS: Ht 162.5 cm; Wt 77.1 kg
[2023-06-22 23:08] VITALS: BP 140/80
[2023-06-23 00:26] LABS: BASO % 0.3 % (0.0-1.0); EOS # 0.2 10*3/uL (0.0-0.4); EOS % 1.9 % (1.0-4.0); HEMATOCRIT 42.6 % (37.0-47.0); LYMPH # 2.6 10*3/uL (1.3-4.4); LYMPH % 27.4 % (27.0-41.0); MEAN CELL VOLUME 90.8 fl (81.0-99.0); MEAN CORPUSCULAR HGB 28.1 pg (27.0-31.0); MEAN PLATELET VOLUME 10.9 fl (9.6-12.3); MONO # 0.7 10*3/uL (0.1-1.0); MONO % 7.3 % (3.0-9.0); NEUT # 5.9 10*3/uL (2.3-7.9); NEUT % 62.7 % (47.0-73.0); PLATELET COUNT AUTOMATED 399 10*3/uL (130-400); RED BLOOD COUNT 4.69 10*6/uL (4.10-5.10); RED CELL DISTRI WIDTH 13.6 % (0-14.5); WHITE BLOOD COUNT 9.4 10*3/uL (4.8-10.8)
[2023-06-23 00:48] LABS: ALKALINE PHOSPHATASE 99 U/L (46-116); BUN 13 mg/dl (9-23); CHLORIDE 105 mmol/L (98-107); POTASSIUM 3.9 mmol/L (3.4-5.1); SGPT/ALT 10 U/L (5-49); TOTAL PROTEIN 7.1 gm/dL (6.0-8.0)
== END 2023-06-23 02:26 | disposition home or self-care (01) ==
LOC: ED 21:48
PROVIDERS: Emergency Medicine
DX: R14.0 Abdominal distension (gaseous) (principal); J02.9 Acute pharyngitis, unspecified; Z79.2 Long term (current) use of antibiotics; Z79.899 Other long term (current) drug therapy; Z90.89 Acquired absence of other organs; Z98.890 Other specified postprocedural states

== ENCOUNTER 2024-01-15 19:58 | Emergency (ER) | payer OTHER ==
[~2024-01-15] VITALS: Ht 162.5 cm; Wt 81.6 kg
[2024-01-15 21:11] LABS: BASO % 0.3 % (0.0-1.0); EOS # 0.2 10*3/uL (0.0-0.4); EOS % 2.3 % (1.0-4.0); HEMATOCRIT 38.4 % (37.0-47.0); LYMPH # 2.3 10*3/uL (1.3-4.4); LYMPH % 26.1 % (27.0-41.0); MEAN CELL VOLUME 91.2 fl (81.0-99.0); MEAN CORPUSCULAR HGB 29.2 pg (27.0-31.0); MONO # 0.6 10*3/uL (0.1-1.0); MONO % 7.3 % (3.0-9.0); NEUT # 5.6 10*3/uL (2.3-7.9); NEUT % 63.8 % (47.0-73.0); PLATELET COUNT AUTOMATED 349 10*3/uL (130-400); RED BLOOD COUNT 4.21 10*6/uL (4.10-5.10); WHITE BLOOD COUNT 8.8 10*3/uL (4.8-10.8)
[2024-01-15 21:33] LABS: BUN 13 mg/dl (9-23); CHLORIDE 109 mmol/L (98-107)
[2024-01-15] MEDS ORDERED: MEDROL DOSEPAK4 MG PO (22:36)
[2024-01-15] MEDS ORDERED: CYCLOBENZAPRINE10 MG PO (22:36)
[2024-01-15] MEDS ORDERED: Cyclobenzaprine Hydrochlorid 10 MG TAB PO ONE (22:40)
[2024-01-15 22:47] VITALS: BP 150/47
== END 2024-01-15 22:55 | disposition home or self-care (01) ==
LOC: ED 19:58
PROVIDERS: Emergency Medicine
DX: M54.41 Lumbago with sciatica, right side (principal); M54.42 Lumbago with sciatica, left side; R03.0 Elevated blood-pressure reading, without diagnosis of hypertension; F41.9 Anxiety disorder, unspecified; K21.9 Gastro-esophageal reflux disease without esophagitis; Z79.2 Long term (current) use of antibiotics; Z79.899 Other long term (current) drug therapy; Z98.890 Other specified postprocedural states; Z90.89 Acquired absence of other organs

== ENCOUNTER → 2024-01-27 | Outpatient (CLI) | payer OTHER ==
[~2024-01-27] MED LIST changes: +MEDROL DOSEPAK4 MG PO
== END | disposition home or self-care (01) ==
LOC: RAD 17:07
PROVIDERS: ATTEND Nurse Practitioner Family
DX: M47.816 Spondylosis without myelopathy or radiculopathy, lumbar region (principal)

== ENCOUNTER → 2024-01-29 | Outpatient (CLI) | payer OTHER | END | disposition home or self-care (01) | LOC: US 08:43 | PROVIDERS: ATTEND Nurse Practitioner Family | DX: K80.20 Calculus of gallbladder without cholecystitis without obstruction (principal); R10.84 Generalized abdominal pain ==

== ENCOUNTER 2024-03-05 18:18 | Emergency (ER) | payer OTHER ==
[~2024-03-05] VITALS: Ht 162.5 cm; Wt 81.6 kg
[2024-03-05 18:30] VITALS: BP 144/87
[2024-03-05] MEDS ORDERED: Ondansetron4 MG PO (20:33)
== END 2024-03-05 20:52 | disposition home or self-care (01) ==
LOC: ED 18:18
DX: M62.08 Separation of muscle (nontraumatic), other site (principal); R11.0 Nausea; F41.9 Anxiety disorder, unspecified; K21.9 Gastro-esophageal reflux disease without esophagitis; E83.41 Hypermagnesemia; F32.A Depression, unspecified; Z86.16 Personal history of COVID-19; Z90.89 Acquired absence of other organs; Z98.890 Other specified postprocedural states

== ENCOUNTER 2024-07-05 19:57 | Emergency (ER) | payer OTHER ==
[~2024-07-05] VITALS: Ht 162.5 cm; Wt 81.6 kg
[~2024-07-05 19:57] MED LIST changes: +Ondansetron4 MG PO
[2024-07-05 20:00] VITALS: BP 122/64
[2024-07-05] MEDS ORDERED: VITAMIN D-40010 MCG PO (20:12)
== END 2024-07-05 21:25 | disposition home or self-care (01) ==
LOC: ED 19:57
DX: M79.89 Other specified soft tissue disorders (principal); F41.9 Anxiety disorder, unspecified; E83.41 Hypermagnesemia; F32.A Depression, unspecified; Z90.89 Acquired absence of other organs; Z98.890 Other specified postprocedural states; Z98.51 Tubal ligation status

== ENCOUNTER 2024-10-26 20:52 | Emergency (ER) | payer OTHER ==
[~2024-10-26] VITALS: Wt 81.6 kg
[~2024-10-26 20:52] MED LIST changes: +VITAMIN D-40010 MCG PO
[2024-10-26 21:19] VITALS: BP 129/84
== END 2024-10-26 21:31 | disposition home or self-care (01) ==
LOC: ED 20:52
DX: G43.109 Migraine with aura, not intractable, without status migrainosus (principal); Z79.899 Other long term (current) drug therapy; Z98.890 Other specified postprocedural states; Z90.89 Acquired absence of other organs

== ENCOUNTER 2025-01-06 15:21 | Emergency (ER) | payer OTHER ==
[~2025-01-06] VITALS: Ht 162.5 cm; Wt 77.1 kg
[2025-01-06 15:38] VITALS: BP 132/88
[2025-01-06 16:05] LABS: BILIRUBIN Negative (Negative); BLOOD Negative (Negative); CLARITY Clear (Clear); COLOR Yellow (Yellow); KETONE 1+ (Negative); LEUKO ESTERASE Negative (Negative); NITRITE Negative (Negative); PH 7.5 (4.5-8.0); SPECIFIC GRAVITY 1.025 (1.001-1.030); UROBILINOGEN 1.0 E.U./dl (0.0-1.0)
[2025-01-06 16:17] LABS: BACTERIA TRACE; YEAST 1+
[2025-01-06] MEDS ORDERED: Ondansetron4 MG PO (17:50)
== END 2025-01-06 16:34 | disposition home or self-care (01) ==
LOC: ED 15:21
PROVIDERS: Nurse Practitioner Family
DX: U07.1 COVID-19 (principal); R30.0 Dysuria; H92.02 Otalgia, left ear; Z79.899 Other long term (current) drug therapy; Z98.890 Other specified postprocedural states; Z90.89 Acquired absence of other organs

== ENCOUNTER 2025-03-10 18:11 | Emergency (ER) | payer OTHER ==
[~2025-03-10] VITALS: Ht 162.5 cm; Wt 81.6 kg
[2025-03-10 19:15] VITALS: BP 140/88
[2025-03-10] MEDS ORDERED: Dexamethasone Sodium Phospha 20 MG/5 ML VIAL IM ONE (19:20)
[2025-03-10] MEDS ORDERED: PREDNISONE50 MG PO (19:23)
== END 2025-03-10 19:50 | disposition home or self-care (01) ==
LOC: ED 18:11
DX: L25.9 Unspecified contact dermatitis, unspecified cause (principal); Z98.890 Other specified postprocedural states; Z90.89 Acquired absence of other organs

== ENCOUNTER 2025-06-16 17:08 | Emergency (ER) | payer MEDICAID ==
[~2025-06-16] VITALS: Ht 162.5 cm; Wt 77.1 kg
[2025-06-16 17:18] VITALS: BP 134/90
[2025-06-16 17:52] LABS: BILIRUBIN Negative (Negative); BLOOD Negative (Negative); CLARITY Clear (Clear); COLOR Dark Yellow (Yellow); KETONE Trace (Negative); LEUKO ESTERASE Trace (Negative); NITRITE Negative (Negative); PH 6.0 (4.5-8.0); SPECIFIC GRAVITY >= 1.030 (1.001-1.030); UROBILINOGEN 1.0 E.U./dl (0.0-1.0)
[2025-06-16 19:03] LABS: BACTERIA 1+; MUCOUS 2+; YEAST TRACE
[2025-06-16] MEDS ORDERED: AMOX-CLAV 875-1 EACH PO (21:20)
[2025-06-16] MEDS ORDERED: PREDNISONE20 M1 PO (21:20)
[2025-06-16] MEDS ORDERED: Amoxicillin/Clavulanate Pota 875 MG TAB PO ONE (21:25)
[2025-06-16] MEDS ORDERED: predniSONE 20 MG TAB PO ONE (21:25)
== END 2025-06-16 21:31 | disposition home or self-care (01) ==
LOC: ED 17:08
PROVIDERS: Student in an Organized Health Care Education/Training Program
DX: N39.0 Urinary tract infection, site not specified (principal); J02.9 Acute pharyngitis, unspecified; F32.A Depression, unspecified; K21.9 Gastro-esophageal reflux disease without esophagitis; F41.9 Anxiety disorder, unspecified; E78.5 Hyperlipidemia, unspecified; Z98.890 Other specified postprocedural states; Z90.89 Acquired absence of other organs; Z87.440 Personal history of urinary (tract) infections; Z86.16 Personal history of COVID-19